=== PATIENT | male | born 1965 | race Two or more races ===

== ENCOUNTER 2023-04-01 12:18 | Inpatient (IN) | payer MEDICAID ==
[~2023-04-01] VITALS: Ht 175.3 cm; Wt 74.9 kg
[2023-04-01 13:24] LABS: BASOPHILS % (AUTO) 0.1 % (0.0-2.0); EOSINOPHILS % (AUTO) 3.2 % (1.0-6.0); HEMATOCRIT 31.4 % (41-53); HEMOGLOBIN 10.7 g/dL (13.5-17.5); LYMPHOCYTES # (AUTO) 0.8 K/uL (1.0-4.8); LYMPHOCYTES % (AUTO) 15.2 % (22.0-44.0); MEAN CORPUSCULAR HEMOGLOBIN 34.9 pg (26.0-34.0); MEAN CORPUSCULAR HGB CONC 34.1 G/dL (31.0-37.0); MEAN CORPUSCULAR VOLUME 102 fL (80-100); MONOCYTES # (AUTO) 0.4 K/uL (0.1-1.0); MONOCYTES % (AUTO) 7.4 % (2.0-9.0); NEUTROPHILS # (AUTO) 3.9 K/uL (1.8-7.7); NEUTROPHILS % (AUTO) 74.1 % (40.0-70.0); PLATELET COUNT (AUTO) 137 K/uL (150-450); RED BLOOD CELL COUNT(AUTO) 3.07 MIL/uL (4.50-5.90); RED CELL DISTRIBUTION WIDTH 13.9 % (11.5-14.5); WHITE BLOOD COUNT (AUTO) 5.3 K/uL (4.5-11.0)
[2023-04-01 13:34] LABS: CALCIUM, TOTAL 8.5 mg/dL (8.8-10.5); CREATININE 7.48 mg/dL (0.60-1.30); POTASSIUM 4.6 mmol/L (3.5-5.1)
[2023-04-01 13:41] LABS: BILIRUBIN,TOTAL 0.5 mg/dL (0.1-1.0); TOTAL PROTEIN, SERUM 6.9 g/dL (6.4-8.2)
[2023-04-01] MEDS ORDERED: MORPHINE SULFATE 2 MG/ML SYRINGE IVP PRN (16:00)
[2023-04-01] MEDS ORDERED: ZOLPIDEM TARTRATE 5 MG TABLET PO PRN (16:00)
[2023-04-01] MEDS ORDERED: ONDANSETRON HCL 4 MG/2 ML VIAL IVP PRN (16:00)
[2023-04-01] MEDS ORDERED: HYDROCODONE/ACETAMINOPHEN 5-325 MG TABLET PO PRN (16:00)
[2023-04-01] MEDS ORDERED: MAGNESIUM HYDROXIDE SUSPENSION 30 ML UDCUP PO PRN (16:00)
[2023-04-01] MEDS ORDERED: ACETAMINOPHEN 325 MG TABLET PO PRN (16:00)
[2023-04-01] MEDS: HEPARIN SODIUM,PORCINE 5,000 UNITS/ML VIAL SQ SCH (16:00)
[2023-04-01] MEDS ORDERED: HydrALAZINE HCL 20 MG/ML VIAL IVP PRN (16:00)
[2023-04-01] MEDS ORDERED: BISACODYL 10 MG RECTAL RECTAL SUPPOSITORY PR PRN (16:00)
[2023-04-01 18:42] VITALS: BP 207/79; RESP 20; O2SAT 100
[2023-04-01] MEDS: DOCUSATE SODIUM 100 MG CAPSULE PO SCH (22:43)
[2023-04-01 23:22] LABS: COVID AG,FIA SOURCE NASAL SWAB
[2023-04-01 23:44] LABS: SARS-COV2 (COVID) ANTIGEN,FIA Negative (Negative)
[2023-04-02] MEDS ORDERED: ATOR40TA71 PO (03:57)
[2023-04-02] MEDS ORDERED: CLON1PAT12 TD (03:57)
[2023-04-02] MEDS ORDERED: AMLO10TA55 PO (03:57)
[2023-04-02] MEDS ORDERED: FOLI-130 PO (04:23)
[2023-04-02] MEDS ORDERED: DOXA2TAB86 PO (04:23)
[2023-04-02] MEDS ORDERED: FERR325T23 PO (04:23)
[2023-04-02] MEDS ORDERED: DIVA125T32 PO (04:23)
[2023-04-02] MEDS ORDERED: BISA10SU11 PR (04:23)
[2023-04-02] MEDS ORDERED: EPOE10003 SQ (04:23)
[2023-04-02] MEDS ORDERED: HYDR25TA84 PO (04:23)
[2023-04-02] MEDS ORDERED: TRAZ-257 PO (04:24)
[2023-04-02] MEDS ORDERED: ONDA4TAB96 PO (04:24)
[2023-04-02] MEDS ORDERED: LACT10PA5 PO (04:24)
[2023-04-02] MEDS ORDERED: SEVE800T17 PO (04:24)
[2023-04-02] MEDS ORDERED: SENN1TAB72 PO (04:24)
[2023-04-02] MEDS ORDERED: VITA-328 PO (04:24)
[2023-04-02] MEDS ORDERED: LORA-1001 PO (04:24)
[2023-04-02] MEDS ORDERED: MELA5TAB21 PO (04:24)
[2023-04-02] MEDS ORDERED: MIDO5TAB5 PO (04:24)
[2023-04-02] MEDS ORDERED: ACET-784 PO (04:24)
[2023-04-02] MEDS ORDERED: OLAN7.5T18 PO (04:24)
[2023-04-02] MEDS: HEPARIN SODIUM,PORCINE 5,000 UNITS/ML VIAL SQ SCH ×3 (08:00→15:46)
[2023-04-02] MEDS: DOCUSATE SODIUM 100 MG CAPSULE PO SCH ×2 (08:25→21:50)
[2023-04-02] MEDS: PANTOPRAZOLE SODIUM 40 MG DR TABLET PO SCH (08:25)
[2023-04-02 08:34] VITALS: BP 208/105; PULSE 73; RESP 19; TEMP 98.8; O2SAT 100
[2023-04-02] MEDS ORDERED: HydrALAZINE HCL 20 MG/ML VIAL IVP PRN (11:15)
[2023-04-02 11:37] VITALS: BP 207/97; PULSE 89; RESP 18; TEMP 97.9
[2023-04-02] MEDS: AmLODIPine BESYLATE 10 MG TABLET PO SCH (12:35)
[2023-04-02] MEDS: CloNIDine HCL 0.1 MG TABLET PO PRN (12:36)
[2023-04-02 16:39] VITALS: BP 118/72; PULSE 71; RESP 19; TEMP 98
[2023-04-02 17:10] VITALS: BP 126/58; PULSE 70
[2023-04-02 23:04] VITALS: BP 114/53; PULSE 73; RESP 18; TEMP 97.7
[2023-04-03] VITALS (11 sets, daily range): BP systolic 100–178; BP diastolic 40–98; PULSE 71–100; RESP 18–19; TEMP 97.8–98.1
[2023-04-03] MEDS: HEPARIN SODIUM,PORCINE 5,000 UNITS/ML VIAL SQ SCH ×3 (00:21→16:00)
[2023-04-03] MEDS: DOCUSATE SODIUM 100 MG CAPSULE PO SCH ×2 (09:00→21:00)
[2023-04-03] MEDS: AmLODIPine BESYLATE 10 MG TABLET PO SCH (09:00)
[2023-04-03] MEDS: PANTOPRAZOLE SODIUM 40 MG DR TABLET PO SCH (09:00)
[2023-04-03] MEDS ORDERED: SODIUM CHLORIDE 0.9% 2,000 ML ONE (12:12)
[2023-04-03] MEDS ORDERED: HALOPERIDOL LACTATE 5 MG/ML VIAL IM ONE (13:00)
[2023-04-03] MEDS ORDERED: HALOPERIDOL LACTATE 5 MG/ML VIAL ONE (13:04)
[2023-04-03] MEDS ORDERED: LORazepam 2 MG/ML VIAL IVP ONE (14:30)
[2023-04-04] VITALS: BP 138/51; PULSE 80; RESP 20; TEMP 97.9
[2023-04-04 04:00] VITALS: BP 122/50; PULSE 79; RESP 19; TEMP 98.3
[2023-04-04 07:41] VITALS: BP 133/55; PULSE 83; RESP 18; TEMP 98
[2023-04-04] MEDS: HEPARIN SODIUM,PORCINE 5,000 UNITS/ML VIAL SQ SCH ×3 (08:00→16:00)
[2023-04-04] MEDS: DOCUSATE SODIUM 100 MG CAPSULE PO SCH ×2 (08:09→20:45)
[2023-04-04] MEDS: AmLODIPine BESYLATE 10 MG TABLET PO SCH (08:10)
[2023-04-04] MEDS: PANTOPRAZOLE SODIUM 40 MG DR TABLET PO SCH (08:10)
[2023-04-04] MEDS ORDERED: BENZONATATE 100 MG CAPSULE PO PRN (12:45)
[2023-04-04] MEDS ORDERED: LORazepam 2 MG/ML VIAL IVP ONE (18:30)
[2023-04-04 19:50] VITALS: BP 145/67; PULSE 85; RESP 20
[2023-04-05] VITALS (11 sets, daily range): BP systolic 130–224; BP diastolic 48–98; PULSE 71–100; RESP 17–20; TEMP 97.5–98.4
[2023-04-05] MEDS: HEPARIN SODIUM,PORCINE 5,000 UNITS/ML VIAL SQ SCH ×4 (00:24→16:22)
[2023-04-05] MEDS ORDERED: LORazepam 2 MG/ML VIAL IVP PRN (07:30)
[2023-04-05] MEDS ORDERED: HALOPERIDOL LACTATE 5 MG/ML VIAL IM ONE (08:30)
[2023-04-05] MEDS: AmLODIPine BESYLATE 10 MG TABLET PO SCH (09:00)
[2023-04-05] MEDS: PANTOPRAZOLE SODIUM 40 MG DR TABLET PO SCH (09:00)
[2023-04-05] MEDS: DOCUSATE SODIUM 100 MG CAPSULE PO SCH ×2 (09:00→20:13)
[2023-04-05] MEDS: CloNIDine HCL 0.1 MG TABLET PO PRN (16:28)
[2023-04-06 04:56] VITALS: BP 147/61; PULSE 73; RESP 18; TEMP 97.5
[2023-04-06] MEDS: AmLODIPine BESYLATE 10 MG TABLET PO SCH (08:19)
[2023-04-06] MEDS: PANTOPRAZOLE SODIUM 40 MG DR TABLET PO SCH (08:19)
[2023-04-06] MEDS: HEPARIN SODIUM,PORCINE 5,000 UNITS/ML VIAL SQ SCH ×4 (08:19→23:39)
[2023-04-06] MEDS: DOCUSATE SODIUM 100 MG CAPSULE PO SCH ×2 (08:19→21:00)
[2023-04-06] MEDS ORDERED: LACT10SO10 PO (14:59)
[2023-04-06] MEDS: FOLIC ACID/VIT B COMPLEX AND C TABLET PO SCH (15:12)
[2023-04-06 16:19] VITALS: BP 150/88; RESP 19
[2023-04-06 20:50] VITALS: BP 139/80; PULSE 73; RESP 18; TEMP 98.3
[2023-04-07 03:53] VITALS: BP 123/94; PULSE 70; RESP 20; TEMP 98.3
[2023-04-07] MEDS: HEPARIN SODIUM,PORCINE 5,000 UNITS/ML VIAL SQ SCH ×3 (08:00→23:45)
[2023-04-07 08:35] VITALS: BP 132/82; PULSE 77; RESP 19; TEMP 98.4
[2023-04-07] MEDS: DOCUSATE SODIUM 100 MG CAPSULE PO SCH ×2 (08:38→19:59)
[2023-04-07] MEDS: FOLIC ACID/VIT B COMPLEX AND C TABLET PO SCH (08:39)
[2023-04-07] MEDS: PANTOPRAZOLE SODIUM 40 MG DR TABLET PO SCH (08:39)
[2023-04-07] MEDS: AmLODIPine BESYLATE 10 MG TABLET PO SCH (08:39)
[2023-04-07 16:35] VITALS: BP 142/64; PULSE 70; RESP 19; TEMP 98.6
[2023-04-07 19:53] VITALS: BP 163/57; PULSE 78; RESP 19; TEMP 98.2
[2023-04-07] MEDS: CloNIDine HCL 0.1 MG TABLET PO PRN (19:59)
[2023-04-08] VITALS (12 sets, daily range): BP systolic 123–170; BP diastolic 39–82; PULSE 58–75; RESP 18–19; TEMP 98–98.2
[2023-04-08 07:54] LABS: CALCIUM, TOTAL 8.8 mg/dL (8.8-10.5); CREATININE 9.61 mg/dL (0.60-1.30); MAGNESIUM 2.3 mg/dL (1.80-2.40); PHOSPHORUS 7.5 mg/dL (2.5-4.9); POTASSIUM 5.6 mmol/L (3.5-5.1)
[2023-04-08] MEDS: HEPARIN SODIUM,PORCINE 5,000 UNITS/ML VIAL SQ SCH ×2 (08:00→16:00)
[2023-04-08] MEDS: AmLODIPine BESYLATE 10 MG TABLET PO SCH (08:18)
[2023-04-08] MEDS: DOCUSATE SODIUM 100 MG CAPSULE PO SCH (08:18)
[2023-04-08] MEDS: PANTOPRAZOLE SODIUM 40 MG DR TABLET PO SCH (08:18)
[2023-04-08] MEDS: FOLIC ACID/VIT B COMPLEX AND C TABLET PO SCH (08:18)
[2023-04-08] MEDS ORDERED: SODIUM CHLORIDE 0.9% 2,000 ML ONE (16:09)
== END 2023-04-08 21:15 | DRG 466 ==
LOC: EMS 12:21 → AHU 15:45 → 5S 17:20 → 6S 04-04 18:45
PROVIDERS: ADMIT Internal Medicine; ATTEND Internal Medicine
PROC: 5A1D70Z Performance of Urinary Filtration, Intermittent, Less than 6 Hours Per Day (ICD-10-PCS; principal; 2023-04-03)
PROC: 5A1D70Z Performance of Urinary Filtration, Intermittent, Less than 6 Hours Per Day (ICD-10-PCS; 2023-04-05)
PROC: 5A1D70Z Performance of Urinary Filtration, Intermittent, Less than 6 Hours Per Day (ICD-10-PCS; 2023-04-08)
DX: T82.41XA Breakdown (mechanical) of vascular dialysis catheter, initial encounter (principal); N18.6 End stage renal disease; I13.2 Hypertensive heart and chronic kidney disease with heart failure and with stage 5 chronic kidney disease, or end stage renal disease; G82.20 Paraplegia, unspecified; F25.1 Schizoaffective disorder, depressive type; E11.22 Type 2 diabetes mellitus with diabetic chronic kidney disease; D64.9 Anemia, unspecified; Z20.822 Contact with and (suspected) exposure to COVID-19; E11.65 Type 2 diabetes mellitus with hyperglycemia; G40.909 Epilepsy, unspecified, not intractable, without status epilepticus; R05.9 Cough, unspecified; E78.00 Pure hypercholesterolemia, unspecified; F41.9 Anxiety disorder, unspecified; K21.9 Gastro-esophageal reflux disease without esophagitis; I50.9 Heart failure, unspecified; Y83.8 Other surgical procedures as the cause of abnormal reaction of the patient, or of later complication, without mention of misadventure at the time of the procedure; E87.5 Hyperkalemia; I16.0 Hypertensive urgency; Z91.199 Patient's noncompliance with other medical treatment and regimen due to unspecified reason; Z99.2 Dependence on renal dialysis; Z79.899 Other long term (current) drug therapy; Y92.89 Other specified places as the place of occurrence of the external cause
CPT/HCPCS: 71045; 80048; 80053; 82330; 83735; 84100; 85025; 87081; 87340; 87481; 90935; 92526; 93005; 99285; J1630; J1644; J2060; J7030; 36415-L1; 36415-TC

== ENCOUNTER 2023-05-01 13:43 | Emergency (ER) | payer MEDICAID ==
[~2023-05-01] VITALS: Ht 167.6 cm; Wt 75.0 kg
[~2023-05-01 13:43] MED LIST: ACET-784 PO; AMLO10TA55 PO; ATOR40TA71 PO; BISA10SU11 PR; DIVA125T32 PO; EPOE10003 SQ; LACT10SO10 PO; OLAN7.5T18 PO; SEVE800T17 PO
[2023-05-01 13:55] VITALS: TEMP 98.1
[2023-05-01 16:04] VITALS: BP 152/81; PULSE 76; RESP 18
== END 2023-05-01 17:09 | disposition home or self-care (01) ==
LOC: EMS 13:43
DX: T82.838A Hemorrhage due to vascular prosthetic devices, implants and grafts, initial encounter (principal); F41.9 Anxiety disorder, unspecified; F31.9 Bipolar disorder, unspecified; E11.9 Type 2 diabetes mellitus without complications; E78.00 Pure hypercholesterolemia, unspecified; F20.9 Schizophrenia, unspecified; I11.0 Hypertensive heart disease with heart failure; I50.9 Heart failure, unspecified
CPT/HCPCS: 99281; Z7502